=== PATIENT | female | born 1940 | race Caucasian/White ===

== ENCOUNTER 2022-12-24 09:14 | Outpatient (CLI) | payer MEDICARE | END 2022-12-24 09:15 | disposition home or self-care (01) | LOC: CSHULT 09:14 | PROVIDERS: ATTEND Internal Medicine | DX: R74.8 Abnormal levels of other serum enzymes (principal); K76.0 Fatty (change of) liver, not elsewhere classified; K80.20 Calculus of gallbladder without cholecystitis without obstruction | CPT/HCPCS: 76700 ==

== ENCOUNTER 2023-01-07 10:23 | Emergency (ER) | payer MEDICARE ==
[2023-01-07] MEDS ORDERED: predniSONE 20 MG TAB ONE (11:59)
[2023-01-07] MEDS ORDERED: Ketorolac Tromethamine 30 MG/ML VIAL ONE (11:59)
== END 2023-01-07 12:42 | disposition home or self-care (01) ==
LOC: CSHERS 10:23
DX: M54.42 Lumbago with sciatica, left side (principal)
CPT/HCPCS: 72170; 96372; J1885; J7512